=== PATIENT | male | born 1945 | race Caucasian/White ===

== ENCOUNTER 2016-03-24 20:56 | Emergency (ER) | payer OTHER ==
[~2016-03-24 20:56] MED LIST: ALLO100T PO; CART240C4 PO; COUM5TAB PO; FURO1TAB93 PO; HYDR-3580 PO; LEVO500T3 PO; LORTS PO; METH4PAK PO; POTA20PA PO; PRIN20TA2 PO
[2016-03-24 21:03] VITALS: BP 145/72; PULSE 90; RESP 20; TEMP 97.8; O2SAT 95
[2016-03-24] MEDS ORDERED: ATOR40TA16 PO (21:26)
[2016-03-24] MEDS ORDERED: CART240C PO (21:26)
[2016-03-24] MEDS ORDERED: ALLO100T PO (21:26)
[2016-03-24] MEDS ORDERED: HYDR25TA5 PO (21:26)
[2016-03-24] MEDS ORDERED: LISI-515 PO (21:26)
[2016-03-24] MEDS ORDERED: PRAD150C PO (21:26)
--- NOTE | 2016-03-24 21:26 | PD ---
HPI Chief Complaint: Respiratory Symptoms Time Seen by Provider: 21:09 Travel History International Travel<30 days: No Contact w/Intl Traveler<30days: No Traveled to known affect area: No History of Present Illness HPI This 70-year-old male is complaining of congestion and shortness of breath. He has a history of cancer of the larynx. He had surgery and radiation in 2012. He is thought to be disease free. He has been going for follow-up with Dr. RICHARDS. He gets attacks occasionally where he feels like his throat is closing. He had an episode tonight. He feels a little bit better now. He has been on steroids for these episodes in the past. He says that Dr. Maza has examined him since these episodes started and did not see any evidence of recurrent cancer. He also has a history of paroxysmal atrial fibrillation and is on Pradaxa. PFSH Past Medical History Hx Anticoagulant Therapy: Yes (PRADAXA ) Arthritis: No Asthma: No Atrial Fibrillation: Yes Autoimmune Disease: No Blood Disorders: No Anxiety: No Depression: No Heart Rhythm Problems: Yes (AFIB) Cancer: Yes (LARYNGEAL) Cardiac Catheterization: No Cardiovascular Problems: Yes (A FIB) High Cholesterol: No Chemotherapy: Yes (finished 08-17-12) Chest Pain: No Congestive Heart Failure: Yes COPD: No Cerebrovascular Accident: No Diabetes: No Diminished Hearing: No Endocrine: No GERD: No Glaucoma: No Gout: Yes Genitourinary: No Headaches: No Hepatitis: No Hiatal Hernia: No Hypertension: Yes Immune Disorder: No Kidney Stones: Yes Musculoskeletal: No Neurologic: No Psychiatric: No Reproductive: No Respiratory: Yes (,LARYNGEAL CA,TRACHEOSTOMY) Immunizations Current: No Migraines: No Myocardial Infarction: No Radiation Therapy: Yes (finished ) Renal Failure: No Seizures: No Sickle Cell Disease: No Sleep Apnea: No Thyroid Disease: No Ulcer: No Past Surgical History Abdominal Surgery: No AICD: No Appendectomy: Yes Arteriovenous Shunt: No Body Medical Devices: METAL PLATE IN LEFT ARM Cardiac Surgery: Yes (ABLATION) Cholecystectomy: No Coronary Artery Bypass Graft: No Ear Surgery: No Endocrine Surgery: No Eye Surgery: No Genitourinary Surgery: No Gynecologic Surgery: No Insulin Pump: No Joint Replacement: No Oral Surgery: No Pacemaker: No Thoracic Surgery: No Other Surgery: Yes (BROKEN ARM ) Social History Alcohol Use: Yes (COUPLE DRINKS DAILY ) Tobacco Use: No Substance Use: No Allergies-Medications (Allergen,Severity, Reaction): Coded Allergies: Lopressor (Verified Allergy, Unknown, 03/24/16) CAUSES CHF Reported Meds & Prescriptions Reported Meds & Active Scripts Active Reported Allopurinol 100 Mg Tab 100 Mg PO DAILY Cartia Xt (Diltiazem ER 24 HR) 240 Mg Caper 240 Mg PO BID Lisinopril 20 Mg Tab 20 Mg PO BID Atorvastatin (Atorvastatin Calcium) 40 Mg Tab 40 Mg PO HS Hydrochlorothiazide 25 Mg Tab 25 Mg PO DAILY Pradaxa (Dabigatran) 150 Mg Cap 150 Mg PO BID Review of Systems General / Constitutional: No: Fever, Chills Eyes: No: Diploplia HENT: Positive: Sore Throat, Congestion, No: Headaches, Vertigo Cardiovascular: No: Chest Pain or Discomfort Respiratory: No: Cough, Shortness of Breath Gastrointestinal: No: Vomiting Genitourinary: No: Urgency Musculoskeletal: No: Myalgias Skin: No Rash Physical Exam Narrative GENERAL: Well-developed male. His voice is hoarse. this is the way it has been since his surgery SKIN: Warm and dry. HEAD: Atraumatic. Normocephalic. EYES: Pupils equal and round. No scleral icterus. No injection or drainage. ENT: No nasal bleeding or discharge. Mucous membranes pink and moist. Posterior pharynx is negative. He had some hoarseness which cleared with cough NECK: Trachea midline. No JVD. CARDIOVASCULAR: Irregular rate and rhythm. No murmur appreciated. RESPIRATORY: No accessory muscle use. Clear to auscultation. Breath sounds equal bilaterally. GASTROINTESTINAL: Abdomen soft, non-tender, nondistended. Hepatic and splenic margins not palpable. MUSCULOSKELETAL: No obvious deformities. No clubbing. No cyanosis. No edema. NEUROLOGICAL: Awake and alert. No obvious cranial nerve deficits. Motor grossly within normal limits. Normal speech. PSYCHIATRIC: Appropriate mood and affect; insight and judgment normal. Data Data Last Documented VS Vital Signs Date Time Temp Pulse Resp B/P Pulse Ox O2 Delivery O2 Flow Rate FiO2 03/24/16 21:03 97.8 90 20 145/72 95 Orders Albuterol-Ipratropium Neb (Duoneb Neb) (03/24/16 21:30) Prednisone (Deltasone) (03/24/16 21:30) MDM Medical Decision Making Medical Screen Exam Complete: Yes Emergency Medical Condition: Yes Medical Record Reviewed: Yes Differential Diagnosis Differential includes upper airway obstruction, recurrent tumor Narrative Course Patient appears stable at this time. He has been examined by Dr. Maza since his episode started without evidence of recurrence. He will be given a course of steroids which is helped in the past. Diagnosis Primary Impression: History of cancer of larynx Scripts Methylprednisolone Dosepak (Medrol Dosepak)4 Mg Dspk4 Mg PO DIRECTED #1 DSPK Ref 0 Per Pharmacist direction Prov:Navi Shaw MD 03/24/16 Disposition: 01 DISCHARGE HOME Condition: Stable Navi Shaw MD Mar 24, 2016 21:26
[2016-03-24] MEDS ORDERED: predniSONE 20 MG TAB PO ONE (21:30)
[2016-03-24] MEDS ORDERED: RESP: ALBUTEROL 2.5 MG/IPRATROPIUM 0.5 MG NEB (SCH) NEB ONE (21:30)
[2016-03-24] MEDS ORDERED: MEDR4PAK PO (21:45)
[2016-03-24 22:00] VITALS: BP 153/71
== END 2016-03-24 22:34 | disposition home or self-care (01) ==
LOC: PHED 20:56
DX: R06.02 Shortness of breath (principal); I48.0 Paroxysmal atrial fibrillation; I10 Essential (primary) hypertension; I50.9 Heart failure, unspecified; Z79.01 Long term (current) use of anticoagulants; Z85.21 Personal history of malignant neoplasm of larynx
CPT/HCPCS: 94664; 99283; J7512

== ENCOUNTER 2016-05-13 11:03 | Day surgery (SDC) | payer OTHER ==
[~2016-05-13 11:03] MED LIST changes: +ATOR40TA16 PO; +CART240C PO; -CART240C4 PO; -COUM5TAB PO; -FURO1TAB93 PO; -HYDR-3580 PO; +HYDR25TA5 PO; -LEVO500T3 PO; +LISI-515 PO; -LORTS PO; +MEDR4PAK PO; -METH4PAK PO; -POTA20PA PO; +PRAD150C PO; -PRIN20TA2 PO
[2016-05-13] MEDS ORDERED: INSULIN HUMAN REGULAR 1,000 UNITS/10 ML VIAL SQ PRN (11:30)
[2016-05-13] MEDS ORDERED: LACTATED RINGER'S 1000 ML IV SCH (11:30)
[2016-05-13] MEDS ORDERED: SODIUM CHLORID 0.9% 500 ML IV SCH (11:30)
[2016-05-13] MEDS ORDERED: VALS1TAB65 PO (11:48)
[2016-05-13] MEDS ORDERED: DOXA1TAB35 PO (11:48)
[2016-05-13] MEDS ORDERED: PROPOFOL 200 MG/20 ML AMP IV ONE (16:00)
--- NOTE | 2016-05-13 16:38 | PD.CARD ---
Cardiology Procedure Note Procedure Name: DC cardioversion Procedure Date: May 13, 2016 Procedure Note: Sedation by anesthesia. 200 J biphasic shock x2, pt converted to a fib. Dx: Attempted cardioversion of atrial fibrillation Plan: Start Multaq, switch diltiazem to metoprolol. F/u w me as outpatient. Attempt cardioversion again later. Brock Britt MD May 13, 2016 16:38
--- NOTE | 2016-05-14 14:09 | EKG ---
Date Performed: 05/13/2016 Time Performed: 11:24:54 PTAGE: 70 years EKG: Atrial fibrillation. Abnormal ECG PREVIOUS TRACING : 03/22/2015 14.09 DOCTOR: Bryan Cisneros Interpretating Date/Time 05/14/2016 14:00:38
== END 2016-05-13 16:40 | disposition home or self-care (01) ==
LOC: HDOC 11:03 → HDIC 11:04 → HDOC 16:40
PROVIDERS: ATTEND Internal Medicine Interventional Cardiology
DX: I48.0 Paroxysmal atrial fibrillation (principal)
CPT/HCPCS: 92960; 93005

== ENCOUNTER 2017-06-01 16:28 | Emergency (ER) | payer OTHER ==
[~2017-06-01] VITALS: Ht 177.8 cm; Wt 127.0 kg
[~2017-06-01 16:28] MED LIST changes: +DOXA1TAB35 PO; -LISI-515 PO; -MEDR4PAK PO; +VALS1TAB65 PO
[2017-06-01 16:31] VITALS: BP 151/73; PULSE 68; RESP 18; TEMP 97.6; O2SAT 96
[2017-06-01] MEDS ORDERED: TRAM50TA PO (16:55)
[2017-06-01] MEDS ORDERED: VENTAER INH ×2 (16:55→18:48)
[2017-06-01] MEDS ORDERED: BACL20TA PO (16:55)
[2017-06-01] MEDS ORDERED: LEVO.125 PO (16:55)
[2017-06-01] MEDS ORDERED: SODIUM CHLORIDE 0.9% FLUSH 10 ML FLUSH IVF PRN (17:00)
[2017-06-01 17:03] VITALS: O2SAT 98
--- NOTE | 2017-06-01 17:09 | PD ---
HPI Chief Complaint: Dizziness Time Seen by Provider: 17:05 Travel History International Travel<30 days: No Contact w/Intl Traveler<30days: No Traveled to known affect area: No History of Present Illness HPI 71-year-old male patient with history of atrial fibrillation currently on Pradaxa, CHF, hypertension, here because he states that he started having coughing with grayish and yellowish phlegm, was having trouble breathing when he laid down last night, having some chest discomfort. He denies any recent fevers or any other issues. He does not know of any sick contacts. He apparently had been seen yesterday at [facility] ER for back pains and that has now subsided. Modifying Factors: None Associated Signs & Symptoms: Coughing, phlegm, chest discomfort, shortness of breath Risk Factors: CHF history PFSH Past Medical History Hx Anticoagulant Therapy: Yes Arthritis: No Asthma: No Atrial Fibrillation: Yes Autoimmune Disease: No Blood Disorders: No Anxiety: No Depression: No Heart Rhythm Problems: Yes (AFIB) Cancer: Yes (LARYNGEAL) Cardiac Catheterization: No Cardiovascular Problems: Yes (A FIB) High Cholesterol: No Chemotherapy: Yes (finished 08-17-12) Chest Pain: No Congestive Heart Failure: Yes COPD: No Cerebrovascular Accident: No Diabetes: No Diminished Hearing: No Endocrine: No GERD: No Glaucoma: No Gout: Yes Genitourinary: No Headaches: No Hepatitis: No Hiatal Hernia: No Hypertension: Yes Immune Disorder: No Kidney Stones: Yes Musculoskeletal: No Neurologic: No Psychiatric: No Reproductive: No Respiratory: Yes (,LARYNGEAL CA,TRACHEOSTOMY) Immunizations Current: No Migraines: No Myocardial Infarction: No Radiation Therapy: Yes (finished ) Renal Failure: No Seizures: No Sickle Cell Disease: No Sleep Apnea: No Thyroid Disease: No Ulcer: No Influenza Vaccination: No ?: Not Past Surgical History Abdominal Surgery: No AICD: No Appendectomy: Yes Arteriovenous Shunt: No Body Medical Devices: METAL PLATE IN LEFT ARM Cardiac Surgery: Yes (ABLATION) Cholecystectomy: No Coronary Artery Bypass Graft: No Ear Surgery: No Endocrine Surgery: No Eye Surgery: No Genitourinary Surgery: No Gynecologic Surgery: No Insulin Pump: No Joint Replacement: No Oral Surgery: No Pacemaker: No Thoracic Surgery: No Other Surgery: Yes (BROKEN ARM ) Social History Alcohol Use: Yes (COUPLE DRINKS DAILY ) Tobacco Use: No Substance Use: No Allergies-Medications (Allergen,Severity, Reaction): Coded Allergies: lisinopril (Verified Allergy, Severe, Shortness of Breath, 06/01/17) metoprolol (Unverified Allergy, Unknown, 06/01/17) CAUSES CHF Reported Meds & Prescriptions Reported Meds & Active Scripts Active Reported Ventolin Hfa 18 GM Inh (Albuterol Sulfate) 90 Mcg/Act Aer 2 Puff INH Q4-6H PRN Baclofen 20 Mg Tab 20 Mg PO TID Tramadol (Tramadol HCl) 50 Mg Tab 50 Mg PO Q4H PRN Synthroid (Levothyroxine Sodium) 125 Mcg Tab 125 Mcg PO DAILY Doxazosin (Doxazosin Mesylate) 2 Mg Tab 2 Mg PO DAILY Valsartan 160 Mg Tab 160 Mg PO DAILY Allopurinol 100 Mg Tab 100 Mg PO DAILY Cartia Xt (Diltiazem ER 24 HR) 240 Mg Caper 240 Mg PO BID Atorvastatin (Atorvastatin Calcium) 40 Mg Tab 40 Mg PO HS Hydrochlorothiazide 25 Mg Tab 25 Mg PO DAILY Pradaxa (Dabigatran) 150 Mg Cap 150 Mg PO BID Review of Systems Except as stated in HPI: all other systems reviewed are Neg Physical Exam Narrative GENERAL: Well-developed elderly white male patient currently in mild distress. Awake and oriented 3. SKIN: Focused skin assessment warm/dry. HEAD: Atraumatic. Normocephalic. EYES: Pupils equal and round. No scleral icterus. No injection or drainage. ENT: No nasal bleeding or discharge. Mucous membranes pink and moist. NECK: Trachea midline. No JVD. CARDIOVASCULAR: Regular rate and rhythm. No murmur appreciated. RESPIRATORY: No accessory muscle use. Intermittent wheezing throughout. Breath sounds equal bilaterally. GASTROINTESTINAL: Abdomen soft, non-tender, nondistended. Hepatic and splenic margins not palpable. MUSCULOSKELETAL: No obvious deformities. No clubbing. No cyanosis. No edema. NEUROLOGICAL: Awake and alert. No obvious cranial nerve deficits. Motor grossly within normal limits. Normal speech. PSYCHIATRIC: Appropriate mood and affect; insight and judgment normal. Data Data Last Documented VS Vital Signs Date Time Temp Pulse Resp B/P (MAP) Pulse Ox O2 Delivery O2 Flow Rate FiO2 06/01/17 18:39 70 18 158/73 (101) 94 Room Air 06/01/17 17:24 21 06/01/17 16:31 97.6 Orders Orders Complete Blood Count With Diff (06/01/17 16:59) Comprehensive Metabolic Panel (06/01/17 16:59) Blood Culture (06/01/17 16:59) Iv Access Insert/Monitor (06/01/17 16:59) Electrocardiogram (06/01/17 16:59) Ecg Monitoring (06/01/17 16:59) Oximetry (06/01/17 16:59) Oxygen Administration (06/01/17 16:59) Chest, Single Ap (06/01/17 16:59) Sodium Chloride 0.9% Flush (Ns Flush) (06/01/17 17:00) B-Type Natriuretic Peptide (06/01/17 17:05) Albuterol-Ipratropium Neb (Duoneb Neb) (06/01/17 17:15) Methylprednisolone So Succ Inj (Solumedr (06/01/17 18:15) Albuterol-Ipratropium Neb (Duoneb Neb) (06/01/17 18:15) Ed Discharge Order (06/01/17 18:46) Labs Laboratory Tests Test 06/01/17 17:19 White Blood Count 7.7 TH/MM3 Red Blood Count 4.21 MIL/MM3 Hemoglobin 13.6 GM/DL Hematocrit 40.0 % Mean Corpuscular Volume 94.9 FL Mean Corpuscular Hemoglobin 32.2 PG Mean Corpuscular Hemoglobin Concent 33.9 % Red Cell Distribution Width 13.6 % Platelet Count 202 TH/MM3 Mean Platelet Volume 6.5 FL Neutrophils (%) (Auto) 90.9 % Lymphocytes (%) (Auto) 3.6 % Monocytes (%) (Auto) 4.4 % Eosinophils (%) (Auto) 0.7 % Basophils (%) (Auto) 0.4 % Neutrophils # (Auto) 7.0 TH/MM3 Lymphocytes # (Auto) 0.3 TH/MM3 Monocytes # (Auto) 0.3 TH/MM3 Eosinophils # (Auto) 0.1 TH/MM3 Basophils # (Auto) 0.0 TH/MM3 CBC Comment DIFF FINAL Differential Comment Blood Urea Nitrogen 13 MG/DL Creatinine 1.00 MG/DL Random Glucose 112 MG/DL Total Protein 7.6 GM/DL Albumin 3.9 GM/DL Calcium Level 9.0 MG/DL Alkaline Phosphatase 92 U/L Aspartate Amino Transf (AST/SGOT) 19 U/L Alanine Aminotransferase (ALT/SGPT) 12 U/L Total Bilirubin 0.6 MG/DL Sodium Level 131 MEQ/L Potassium Level 4.3 MEQ/L Chloride Level 95 MEQ/L Carbon Dioxide Level 30.2 MEQ/L Anion Gap 6 MEQ/L Estimat Glomerular Filtration Rate 74 ML/MIN B-Type Natriuretic Peptide 149 PG/ML MDM Medical Decision Making Medical Screen Exam Complete: Yes Emergency Medical Condition: Yes Medical Record Reviewed: Yes Interpretation(s) EKG shows NSR, no ST elevation or depression, and no arrhythmias. No significant T-wave inversions. Laboratory Tests Test 06/01/17 17:19 Red Blood Count 4.21 MIL/MM3 (4.50-5.90) Mean Platelet Volume 6.5 FL (7.0-11.0) Neutrophils (%) (Auto) 90.9 % (16.0-70.0) Lymphocytes (%) (Auto) 3.6 % (9.0-44.0) Lymphocytes # (Auto) 0.3 TH/MM3 (1.0-4.8) Random Glucose 112 MG/DL (74-106) Sodium Level 131 MEQ/L (136-145) Chloride Level 95 MEQ/L (98-107) Estimat Glomerular Filtration Rate 74 ML/MIN (>89) B-Type Natriuretic Peptide 149 PG/ML (0-100) Last 24 hours Impressions Chest X-Ray 06/01/17 9239 Signed Impressions: Service Date/Time: Thursday, June 01, 2017 17:15 - CONCLUSION: 1. No acute cardiopulmonary findings identified. Mustapha Mcgrath MD Differential Diagnosis CHF exacerbation versus COPD versus bronchitis versus pneumonia versus URI Narrative Course Chest x-ray did not show any signs of acute pulmonary processes. EKG did not show dysrhythmias. Lab work was fairly unremarkable with a normal BNP. Patient was given nebulizers and Solu-Medrol. On reevaluation at 6:45 PM, he reports feeling much improved, ambulating in the ER and states he feels much better and wants to go home. At this point, my plan would be to release him with follow-up to primary care doctor. Return for any worsening in in the ER breathing issues, or any symptoms as needed. The plan has been discussed with him and he states understanding. Diagnosis Primary Impression: Bronchitis Med/Other Pt SpecificInfo: Prescription(s) given Scripts Prednisone (Prednisone) 50 Mg Tab 50 MG PO DAILY for 5 Days, #5 TAB 0 Refills Prov: Demetrius Gutiérrez MD 06/01/17 Azithromycin (Zithromax Z-Tyree) 250 Mg Dspk 250 MG PO DIRECTED for Infection, #1 DSPK 0 Refills 500 MG (2 tabs) day 1, then 1 tab days 2-5. Prov: Demetrius Gutiérrez MD 06/01/17 Albuterol 18 GM Inh (Ventolin Hfa 18 GM Inh) 90 Mcg/Act Aer 2 PUFF INH Q4-6H Y for SHORTNESS OF BREATH, #1 INHALER 0 Refills Prov: Demetrius Gutiérrez MD 06/01/17 Disposition: 01 DISCHARGE HOME Condition: Stable Demetrius Gutiérrez MD Jun 01, 2017 17:09
[2017-06-01] MEDS: RESP: ALBUTEROL 2.5 MG/IPRATROPIUM 0.5 MG NEB (SCH) INH ×3 (17:22→18:17)
[2017-06-01 17:24] VITALS: O2SAT 96
--- NOTE | 2017-06-01 17:32 | RADRPT ---
EXAM DATE/TIME: 06/01/2017 17:15 [facility] COMPARISON: No previous studies available for comparison. INDICATIONS : Cough. MEDICAL HISTORY : Congestive heart failure. A-fib. SURGICAL HISTORY : None. ENCOUNTER: Initial ACUITY: 1 day PAIN SCORE: 0/10 LOCATION: Bilateral chest FINDINGS: The heart is at the upper limits of normal in size. The lungs demonstrate chronic interstitial change s but are otherwise clear. The visualized bony structures are grossly intact. CONCLUSION: 1. No acute cardiopulmonary findings identified. Mustapha Mcgrath MD on June 01, 2017 at 17:29 Board Certified Radiologist. This report was verified electronically.
[2017-06-01 17:33] LABS: BASOPHIL % 0.4 % (0.0-2.0); EOSINOPHIL # 0.1 TH/MM3 (0-0.4); EOSINOPHIL % 0.7 % (0.0-4.0); HEMOGLOBIN 13.6 GM/DL (13.0-17.0); LYMPH % 3.6 % (9.0-44.0); LYMPHOCYTE # 0.3 TH/MM3 (1.0-4.8); MEAN CELL VOLUME 94.9 FL (80.0-100.0); MEAN CORPUSCULAR HEMOGLOBIN 32.2 PG (27.0-34.0); MEAN CORPUSCULAR HGB CONC 33.9 % (32.0-36.0); MEAN PLATELET VOLUME 6.5 FL (7.0-11.0); MONO % 4.4 % (0.0-8.0); MONOCYTE # 0.3 TH/MM3 (0-0.9); NEUT % 90.9 % (16.0-70.0); PLATELET COUNT 202 TH/MM3 (150-450); RED BLOOD COUNT 4.21 MIL/MM3 (4.50-5.90); RED CELL DISTRIBUTION WIDTH 13.6 % (11.6-17.2); WHITE BLOOD COUNT 7.7 TH/MM3 (4.0-11.0)
[2017-06-01 17:45] LABS: CHLORIDE 95 MEQ/L (98-107); SODIUM (NA) 131 MEQ/L (136-145)
[2017-06-01 17:50] LABS: ALBUMIN 3.9 GM/DL (3.4-5.0); BICARBONATE 30.2 MEQ/L (21.0-32.0); BLOOD UREA NITROGEN 13 MG/DL (7-18); GLUCOSE,RANDOM 112 MG/DL (74-106)
[2017-06-01 17:53] LABS: ALT (GPT) 12 U/L (12-78); AST (GOT) 19 U/L (15-37); GLOMERULAR FILTRATION RATE 74 ML/MIN (>89)
[2017-06-01 17:55] LABS: TOTAL BILIRUBIN ADULT 0.6 MG/DL (0.2-1.0); TOTAL PROTEIN 7.6 GM/DL (6.4-8.2)
[2017-06-01 17:56] LABS: ALKALINE PHOSPHATASE 92 U/L (45-117)
[2017-06-01] MEDS ORDERED: methylPREDNISolone SOD SUCC 125 MG/2 ML VIAL IV PUSH ONE (18:15)
[2017-06-01 18:39] VITALS: BP 158/73; PULSE 70; RESP 18; O2SAT 94
[2017-06-01] MEDS ORDERED: ZITHTAB PO (18:48)
[2017-06-01] MEDS ORDERED: PRED50 PO (18:48)
--- NOTE | 2017-06-02 08:05 | EKG ---
Date Performed: 06/01/2017 Time Performed: 17:48:52 PTAGE: 71 years EKG: Sinus rhythm NORMAL ECG PREVIOUS TRACING : 05/13/2016 11.24 DOCTOR: Alex Charlton Interpretating Date/Time 06/02/2017 08:05:27
== END 2017-06-01 18:55 | disposition home or self-care (01) ==
LOC: PHED 16:28
DX: J40 Bronchitis, not specified as acute or chronic (principal); I11.0 Hypertensive heart disease with heart failure; I50.9 Heart failure, unspecified; I48.91 Unspecified atrial fibrillation; M10.9 Gout, unspecified; Z87.442 Personal history of urinary calculi; Z79.899 Other long term (current) drug therapy; Z88.8 Allergy status to other drugs, medicaments and biological substances
CPT/HCPCS: 71045; 80053; 83880; 85025; 87040; 93005; 94640; 94664; 96374; 99285; J2930